=== PATIENT | male | born 1960 | race Caucasian/White ===

== ENCOUNTER 2025-03-25 14:31 | Outpatient (AMB) | payer MEDICARE, SELFPAY ==
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
[2025-03-25 15:47] VITALS: BP 140/80; PULSE 67; RESP 14; TEMP 36.6; O2SAT 97; BMI 43.9
== END 2025-03-25 16:41 | disposition home or self-care (01) ==
PROVIDERS: PCP Family Medicine; Visit Provider Family Medicine
DX: E11.9 Type 2 diabetes mellitus without complications (principal)

== ENCOUNTER → 2025-03-25 14:31 | Outpatient (BNVA) | payer SELFPAY | PROVIDERS: PCP Family Medicine; Visit Provider Family Medicine | DX: I10 Essential (primary) hypertension (principal); R41.89 Other symptoms and signs involving cognitive functions and awareness; H91.90 Unspecified hearing loss, unspecified ear; G47.9 Sleep disorder, unspecified; E78.5 Hyperlipidemia, unspecified; E11.9 Type 2 diabetes mellitus without complications; F41.8 Other specified anxiety disorders; R51.9 Headache, unspecified; G47.30 Sleep apnea, unspecified; S06.0XAA Concussion with loss of consciousness status unknown, initial encounter; V89.2XXA Person injured in unspecified motor-vehicle accident, traffic, initial encounter; Y93.9 Activity, unspecified; Y92.9 Unspecified place or not applicable; Y99.9 Unspecified external cause status; Z79.01 Long term (current) use of anticoagulants; Z86.718 Personal history of other venous thrombosis and embolism | CPT/HCPCS: 83036; 96127; 99212 ==

== ENCOUNTER 2025-04-01 12:11 | Outpatient (REF) | payer MEDICARE, SELFPAY ==
[2025-04-01 14:55] LABS: Hematocrit 39.3 % (42.0-52.0); Hemoglobin 12.9 g/dl (14.0-18.0); Mean Corpuscular HGB Conc 32.8 g/dl (31.0-36.0); Mean Corpuscular Hemoglobin 27.9 pg (27.0-33.0); Mean Corpuscular Volume 85.1 fL (80.0-98.0); NRBC Abs Auto 0.000 X10*3/uL (0.0-0.012); NRBC Pct Auto 0.0 /100WBC (0.0-0.2); Platelet Count 321 X10*3/uL (160-400); Red Blood Count 4.62 X10*6/uL (4.60-5.80); White Blood Count 9.3 X10*3/uL (4.8-10.8)
[2025-04-01 15:35] LABS: INTERNATIONAL NORM RATIO 1.8 (0.9-1.1); Prothrombin Time 20.3 SEC (10.9-12.4)
[2025-04-01 15:40] LABS: Alanine Aminotransferase 20 U/L (0-40); Albumin Level 4.0 g/dL (3.5-5.0); Alkaline Phosphatase 85 U/L (39-117); Anion Gap 14 (12-20); Aspartate Amino Transferase 28 U/L (5-37); Blood Urea Nitrogen 21 mg/dL (9-16); Calcium 9.2 mg/dL (8.4-10.2); Carbon Dioxide 20 mmol/L (22-29); Chloride 108 mmol/L (96-108); Cholesterol 115 mg/dL (<200); Estimated Glomerular Filt Rate > 60; HDL Cholesterol 34 mg/dL (>40); Potassium 4.5 mmol/L (3.3-5.1); Sodium 137 mmol/L (135-145); Total Protein 6.8 g/dL (6.5-8.0); Triglycerides 172 mg/dL (<150)
== END 2025-04-01 12:12 | disposition home or self-care (01) ==
LOC: HO.WFDLDS 12:11
PROVIDERS: Visit Provider Physician Assistant Medical
DX: Z13.9 Encounter for screening, unspecified (principal); E78.5 Hyperlipidemia, unspecified; I10 Essential (primary) hypertension; Z86.718 Personal history of other venous thrombosis and embolism; Z79.01 Long term (current) use of anticoagulants
CPT/HCPCS: 36415; 80053; 80061; 85027; 85610

== ENCOUNTER 2025-04-05 09:24 | Outpatient (REF) | payer MEDICARE, SELFPAY ==
[2025-04-05 11:50] LABS: INTERNATIONAL NORM RATIO 2.4 (0.9-1.1); Prothrombin Time 27.3 SEC (10.9-12.4)
== END 2025-04-05 09:25 | disposition home or self-care (01) ==
LOC: HO.WFDLDS 09:24
PROVIDERS: Visit Provider Physician Assistant Medical
DX: Z79.01 Long term (current) use of anticoagulants (principal)
CPT/HCPCS: 36415; 85610

== ENCOUNTER 2025-06-17 11:50 | Outpatient (AMB) | payer MEDICARE, SELFPAY ==
[2025-06-17 12:45] VITALS: BP 134/82; PULSE 63; O2SAT 98; BMI 45.1
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
--- OUTSIDE RECORDS SUMMARY | 2025-06-17 14:09 | XMS_ITS | Clinical Summary ---
Author Organization [facility] Address [address] [place] [address] Phone Care Team Providers Care Director Of Leadership Development Name Role Phone Tanya Baekr MD Primary Care Provider [phone] Allergies Active Allergy Reactions Criticality Noted Date Comments Iodinated Contrast Media 11/04/2024 Medications atorvastatin (LIPITOR) 40 MG tablet Take 1 tablet by mouth every morning. 09/06/2024 Active escitalopram oxalate (LEXAPRO) 20 MG tablet Take 1 tablet by mouth every morning. 10/23/2024 Active lisinopril (PRINIVIL,ZESTRIL ) 30 MG tablet Take 1 tablet by mouth every morning. 10/16/2024 Active metFORMIN (GLUCOPHAGE) 500 MG tablet 1,000 mg daily with breakfast. 09/24/2024 Active JANTOVEN 2 mg tablet Take 2 mg by mouth. 11/03/2024 Active MOUNJARO 10 mg/0.5 mL PnIj subcutaneous pen Inject 10 mg under the skin once a week. 11/30/2024 Active ONETOUCH VERIO Strp strips USE 1 STRIP TO TEST BLOOS SUGAR ONCE DAILY 12/03/2024 Active ONETOUCH VERIO REFLECT METER Misc meter USE TO TEST BLOOD SUGARS DAILY 12/03/2024 Active ONETOUCH DELICA PLUS LANCET 33 gauge Misc USE 1 LANCET DAILY TO TEST BLOOD SUGARS ONCE DAILY 12/03/2024 Active Active Problems No known active problems Encounters Date Type Department Care Team Description 05/10/2025 10:00 AM EDT Follow-Up [facility] [address] [place] [id number] Silviano Mitchell NP Concussion with no loss of consciousness, sequela (Primary Dx); Memory loss; Emotional dysregulation; Attention and concentration deficit; Dizziness and giddiness; Bilateral hearing loss, unspecified hearing loss type from Last 3 Months Social History Tobacco Use Types Packs/Day Years Used Date Smoking Tobacco: Never Smokeless Tobacco: Never Tobacco Cessation:Counseling Given: Not Answered Alcohol Use Standard Drinks/Week Comments Not Currently 0 (1 standard drink = 0.6 oz pur e alcohol) Education Answer Date Recorded Are you interested in more education? Not on azeem e 05/22/2023 Are you concerned about learning? Not on file 05/22/2023 No 05/22/2023 No 05/22/2023 Digital Access Answer Date Recorded No 05/22/2023 No 05/22/2023 Reliable internet access at home? Not on file 05/22/2023 Device with a working camera? Not on file Sex and Gender Information Value Date Recorded Sex Assigned at Not on file Legal Sex Male 6:49 PM EST Gender Identity Not on file Sexual Orientation Not on file Plan of Treatment Upcoming Encounters Date Type Department Care Team (Late st Contact Info) Description 07/02/2025 3:00 PM EDT Office Visit [facility] [address] [place] [phone] Kojo Lieberman, PhD [address] [place] [phone] Health Maintenance Due Date Last Done Comments Adult Td,Tdap Booster 1960 CREATININE LEVEL 1960 LIPID PANEL 1960 POTASSIUM LEVEL 1960 DEPRESSION SCREENING 1972 HEPATITIS C SCREENING 1978 HIV ONE-TIME SCREENING (18-6 5 YEARS) 1978 COLOGUARD 2005 COLONOSCOPY 2005 COLORECTAL CANCER SCREENING 2005 FIT TEST 2005 FOBT 2005 SIGMOIDOSCOPY 2005 VIRTUAL COLONOSCOPY 2005 PNEUMOCOCCAL VACCINES (50+ y ears) (1 of 1 - PCV) 2010 ZOSTER VACCINES (1 of 2) 2010 INFLUENZA VACCINE (#1) 2025 COVID-19 VACCINE (2023-2 5 season) 2025 RSV VACCINE (1 - 1-dose 75+ series) 2035 SMOKING STATUS SCREENING (On ce After 26 Yrs) Completed 03/08/2025 HEPATITIS A VACCINES Aged Out No long er eligible based on patient's age to complete this topic HIB VACCINES Aged Out No longer eligi ble based on patient's age to complete this topic MENINGOCOCCAL VACCINES (ACWY) Aged Out No longer eligible based on patient's age to complete this topic MENINGOCOCCAL VACCINES (B) Aged Out N o longer eligible based on patient's age to complete this topic Medical Devices Not on file Insurance [facility] MEDICARE REPLACEMENT [place] MED[place] BLUE REPLACEMENT [facility] MEDICARE REPLACEMENT [address] MEDICARE PPO BLUE REPLACEMENT [facility] MEDICARE REPLACEMENT [address] MEDICARE PPO BLUE REPLACEMENT [facility] MEDICARE REPLACEMENT Member Subscriber Plan / Payer (Ef fective 2022-Present) Name:Manas Naqvi Relation to Subscriber:Self Name:Manas Naqvi Payer ID:[id number] (NAIC) Type:Medicare Address: [place] [id number] MEDICARE PPO BLUE REPLACEMENT [facility] MEDICARE REPLACEMENT Member Subscriber Plan / Payer (Ef fective 2022-Present) Name:Manas Naqvi Relation to Subscriber:Self Name:Manas Naqvi Payer ID:[id number] (NAIC) Type:Medicare Address: [place] [id number] MEDICARE PPO BLUE REPLACEMENT [facility] MEDICARE REPLACEMENT [facility] MEDICARE PPO BLUE REPLACEMENT [facility] MEDICARE PPO [facility] Care Teams Director Of Leadership Development Relationship Specialty Start Date End Date Tanya Baker MD [address] [place] [id number] PCP - General Family Medicine 05/22/23 Additional Source Comments The information contained in this document represents components of the legal health record. It is not the complete legal health record.[facility]
== END 2025-06-17 13:44 | disposition home or self-care (01) ==
LOC: HO.HSMS 11:50
PROVIDERS: PCP Family Medicine; Visit Provider Physician Assistant Medical
DX: G47.19 Other hypersomnia (principal); V89.2XXA Person injured in unspecified motor-vehicle accident, traffic, initial encounter; G44.221 Chronic tension-type headache, intractable; R53.82 Chronic fatigue, unspecified
CPT/HCPCS: 99204

== ENCOUNTER → 2025-06-17 11:50 | Outpatient (BNVA) | payer MEDICARE, SELFPAY | PROVIDERS: PCP Family Medicine; Visit Provider Physician Assistant Medical | DX: G47.19 Other hypersomnia (principal); G44.221 Chronic tension-type headache, intractable; R53.82 Chronic fatigue, unspecified; V89.2XXD Person injured in unspecified motor-vehicle accident, traffic, subsequent encounter | CPT/HCPCS: 99202 ==

== ENCOUNTER 2025-07-07 11:15 | Outpatient (REF) | payer MEDICARE, SELFPAY ==
[2025-07-07 15:43] LABS: Ferritin 96 ng/mL (20-250)
[2025-07-07 15:52] LABS: Folate 13.9 ng/mL (> or = 4.0); Vitamin B12 440 pg/mL (200-900)
== END 2025-07-07 11:16 | disposition home or self-care (01) ==
LOC: HO.WFDLDS 11:15
PROVIDERS: PCP Family Medicine; Referring Provider Physician Assistant Medical; Visit Provider Family Medicine
DX: Z00.00 Encounter for general adult medical examination without abnormal findings (principal); Z12.5 Encounter for screening for malignant neoplasm of prostate; Z12.11 Encounter for screening for malignant neoplasm of colon; I10 Essential (primary) hypertension; E78.5 Hyperlipidemia, unspecified; R53.83 Other fatigue; G47.9 Sleep disorder, unspecified; R51.9 Headache, unspecified; E11.9 Type 2 diabetes mellitus without complications; H91.90 Unspecified hearing loss, unspecified ear; K08.89 Other specified disorders of teeth and supporting structures; V89.2XXA Person injured in unspecified motor-vehicle accident, traffic, initial encounter; Z86.718 Personal history of other venous thrombosis and embolism; Z79.01 Long term (current) use of anticoagulants; Z79.84 Long term (current) use of oral hypoglycemic drugs; Z79.899 Other long term (current) drug therapy
CPT/HCPCS: 36415; 82306; 82607; 82728; 82746; 83921; 84153; 84207; 84425; 84443; 96127; 99212; 99397

== ENCOUNTER 2025-07-07 11:15 | Outpatient (AMB) | payer MEDICARE, SELFPAY ==
--- NOTE | 2025-07-07 11:31 | MHC.PC.OV ---
Vital Signs 07/07/25 11:39 Height 5 ft 9 in Weight 299 lb 2 oz BMI 44.2 BP 144/71 H Blood Pressure Location Rt brachial Position Sitting Respiration 16 Pulse 64 Pulse Source Pulse Oximeter Temp 98.0 F Temp Source Oral Pulse Oximetry (%) 100 Oxygen Delivery Method Room Air Intake Visit Reasons: CPE with f/u labs and health maint. Intake Note: patient here for CPE and follow up on labs and health maint. Edge Worker Required: No Allergies Gadolinium-Containing Contrast Medi Allergy (Severe, Verified 07/07/25 11:36) Nausea and Vomiting Iodinated Contrast Media (Contrast Dye) Allergy (Severe, Verified 07/07/25 11:36) Nausea and Vomiting Medication List - Last Reconciled 07/07/25 by David Mulligan MD ashwagandha extract mg PO atorvastatin 40 mg PO DAILY 90 days biotin 2 mg PO DAILY blood sugar diagnostic ([place] Verio test strips) As directed blood-glucose meter ([place] Verio Reflect Meter) As directed cholecalciferol (vitamin D3) 125 mcg PO DAILY escitalopram oxalate 20 mg PO DAILY folic acid 0.4 mg PO DAILY lancets ([place] Advanced MaterialsTouch Delica Plus Lancet) As directed lisinopril 30 mg PO DAILY 90 days metformin 1,000 mg (2 x 500 mg) PO QPM 90 days niacin 500 mg PO DAILY tirzepatide (Mounjaro) 12.5 mg subcut QWEEK adzpzqzw-aorcmg-msypp pepper 125 mg-6 mg- 50 mcg tabs PO warfarin (Jantoven) 6 mg (3 x 2 mg) PO DAILY 90 days Tobacco use date assessed: 07/07/25 Fall risk assessment: No Falls in past year Last assessed Fall Risk: 07/07/25 Dental Screening Dental Screen Date: 07/07/25 Did you have a dental visit in the last 12 months?: Yes Did you have a dental problem in the last 6 months where you did not have access to dental care?: No Was dental information given to patient?: Patient has dentist HPI CPE with f/u labs and health maint. HPI Details 65 y/o male presents for a CPE with f/u labs and health maintenance. Labs drawn 04/01/25. Reviewed labs with pt. Triglcyerides 172.TC 115. LDL 47. HDL low at 34. He is on artovastatin 40mg daily. BP today 144/71, 64p. He is on lisinopril 30mg daily. Pt notes tooth pain today. A1c today 07/07/25 6.9%. He is on Mounjaro 12.5mg weekly, metformin 1000mg. Recent hearing test shows bilateral hearing loss. He has a sleep study scheduled in July. [facility] Medical History Hernia, umbilical Surgical History History of total hip replacement H/O hernia repair S/P closed reduction and percutaneous pinning (CRPP) of supracondylar fracture of right humerus Social History Housing: House Patient Tobacco Use Status: Former Tobacco user e-Cigarette/Vaping Use: Never Used Second Hand Smoke Exposure: No service: No Current occupational status: disabled Current occupational exposures/hazards: No Cognitive needs: No Hearing needs: No Vision needs: Yes Questionnaire PHQ-9 Over the last 2 weeks, how often have you been bothered by any of the following problems? 1. Little interest or pleasure in doing things: more than half the days 2. Feeling down, depressed, or hopeless: several days 3. Trouble falling or staying asleep, or sleeping too much: several days 4. Feeling tired or having little energy: several days 5. Poor appetite or overeating: not at all 6. Feeling bad about yourself - or that you are a failure or have let yourself or your family down: not at all 7. Trouble concentrating on things, such as reading the newspaper or watching television: more than half the days 8. Moving or speaking so slowly that other people could have noticed. Or the opposite - being so fidgety or restless that you have been moving around a lot more than usual: more than half the days 9. Thoughts that you would be better off or of hurting yourself in some way: not at all Total score: 9 Depression Screening Interpretation: Positive Depression Screening Done: Yes 26980 - PHQ-9 Billing: Yes Source: Developed by Drs. Jadon Paez, Keri Faulkner, Jose Cruz Otero and colleagues, with an educational zhanna from [employer]. Thrive Questionnaire Date Thrive assessed: 07/07/25 I am a: Patient What is your living situation today?: I have a steady place to live Within the past 12 months, did the food you bought not last and you didn't have the money to get more?: Never true Within the past 12 months, did you worry whether your food would run out before you got money to buy more?: Never true Do you have trouble paying for medicines?: No Do you have trouble getting transportation to medical appointments?: No Do you have trouble paying your heating and electricity bill?: No Do you have trouble taking care of your child, family member or friend?: No Do you have trouble with day-to-day activities such as bathing, preparing meals, shopping, managing finances, etc.?: No Are you currently unemployed and looking for a job?: No Are you interested in more education?: No Please select the resources that you would like help with: None Currently or been in a relationship where the following occur: No concerns reported THRIVE Score: 0 AUDIT C Alcohol Use Questionnaire (AUDIT-C) 1. How often do you have a drink containing alcohol?: Never 3. How often do you have six or more drinks on one occasion?: Never Total Score: 0 Score Reviewed/Action Taken: Yes NAKITA-7 AMB Questionnaire NAKITA-7 Date NAKITA - 7 assessed: 07/07/25 Feeling nervous, anxious, or on edge: 2 = More than half the days Not being able to stop or control worryin = More than half the days Worrying too much about different things: 2 = More than half the days Trouble relaxin = More than half the days Being so restless that it is hard to sit still: 2 = More than half the days Becoming easily annoyed or irritable: 2 = More than half the days Feeling afraid as if something awful might happen: 2 = More than half the days Total NAKITA-7 score (0-4 normal; 5-9 mild; 10-14 moderate; 15-21 severe): 14 Source: Developed by Drs. Jadon Paez, Keri Faulkner, Jose Cruz Otero and colleagues, with an educational zhanna from [employer]. NAKITA-7 Assessment Billing NAKITA-7 Assessment Tool: NAKITA-7 Assessment 95307 Review of Systems Const Denies chills, Denies fatigue, Denies fever(s), Denies headache(s) and Denies weakness Eyes Denies change in vision ENT Denies dizziness, Denies headache(s), Denies hearing loss, Denies nasal congestion, Denies sinus pain, Denies sinus pressure and Denies sore throat Card Denies chest pain, Denies lightheadedness, Denies dyspnea and Denies other (palpitations) Resp Denies cough, Denies dyspnea and Denies wheezing GI Denies abdominal pain, Denies melena, Denies hematochezia, Denies change in bowel habits, Denies dyspepsia and Denies nausea Denies hematuria and Denies dysuria Musc Denies abnormal gait, Denies myalgias, Denies arthralgias, Denies numbness and Denies tingling Skin/Breast Denies rash, Denies unusual bruising and Denies wounds Neuro Denies abnormal gait, Denies dizziness, Denies headache(s), Denies memory loss, Denies numbness, Denies Sensory deficit (Neuro), Denies tingling and Denies weakness Psych Denies anxiety, Denies depression and Denies memory loss Endo Denies cold intolerance, Denies fatigue, Denies heat intolerance, Denies polydipsia and Denies polyuria Max/Lymph Denies easy bleeding and Denies easy bruising Aller/Immun Denies wheezing Physical exam (Primary Care) Vital Signs: Last Vital Signs Temp 98.0 F 07/07/25 11:39 Pulse 64 07/07/25 11:39 Resp 16 07/07/25 11:39 BP 144/71 H 07/07/25 11:39 Pulse Ox 100 07/07/25 11:39 Oxygen Delivery Method Room Air 07/07/25 11:39 BMI result Body Mass Index 44.2 Tobacco/Smoking Status: Tobacco use Status Tobacco use date assessed 07/07/25 07/07/25 11:43 Patient Tobacco Use Status Former Tobacco user 07/07/25 11:34 e-Cigarette/Vaping Use Never Used 07/07/25 11:34 PHQ-9: PHQ-9 Score PHQ-9: Total score 9 07/07/25 12:41 Depression Screening Interpretation: Positive Thrive Assessment: Date of Thrive Assessment Date Thrive assessed 07/07/25 07/07/25 11:43 Currently or been in a relationship where the following occur: No concerns reported Const General: no acute distress, well developed, alert and awake Nutritional Appearance: well nourished Orientation/consciousness: patient oriented x3 [facility] Head: Yes normocephalic and Yes atraumatic Ears: hearing grossly normal bilaterally and TM's normal bilaterally General nose exam: Normal external nose present and Normal nares present Mouth: Normal oral and palatal mucosa present and moist mucous membranes Teeth and gingiva: dentition normal Throat: Yes posterior oropharynx normal Eyes General: appearance normal, both eyes and all related structures Pupils: Equal, round and reactive pupils present and Pupil accommodation reflex normal EOM: EOMs intact bilaterally Neck Neck: Yes normal visual inspection, Yes no lymphadenopathy and Yes trachea midline Thyroid: Thyroid normal Carotids: no bruits Lymphatic: no lymphadenopathy noted Chest Chest palpation & inspection: normal inspection of the chest Resp Effort & Inspection: normal respiratory effort Auscultation: clear to auscultation bilaterally Cardio Rate: regular rate Rhythm: regular rhythm Heart sounds: S1 normal heart sound present, S2 normal heart sound present, no gallops, no murmurs and no rubs Bruits: no abdominal aortic bruits and no carotid bruits GI Palpation (GI): No Abdominal aortic bruit present, Soft to palpation, nontender, No hepatosplenomegaly present and No Rebound tenderness present Auscultation: normal bowel sounds General: Yes no CVA tenderness Back/Spine/Pelvis Back: no CVA tenderness Cervical Spine: cervical ROM normal and No Cervical spine tenderness Thoracic/Lumbar Spine: thoraco-lumbar ROM normal, No pain with thoraco-lumbar ROM, No thoracic spinal tenderness and No lumbar spinal tenderness Skin Lesions: no lesions Rashes: no rashes Trauma: no lacerations or abrasions Wounds: no wounds Nails: normal Neuro General: patient oriented x3 Cranial nerves: Yes Equal, round and reactive pupils present Cognition (Neuro): normal cognition Gait exam (Neuro): Normal gait present Motor exam (neuro): 5/5 motor strength present throughout Sensory Exam: No Sensory deficit (Neuro) Deep tendon reflexes (DTR's): Right patellar reflex intensity grade: 2+ and Left patellar reflex intensity grade: 2+ Extrem General: Yes normal to inspection and No edema Psych Appearance: grossly normal Affect: normal affect Attitude: cooperative Thought process: Normal thought process present Coding Level of Care Code Est Pt Level 3 (79999) Est Pt Prev Care >65y(25749) Diagnoses Adult general medical exam Z00.00 Hypertension I10 Hyperlipidemia E78.5 Screening for colon cancer Z12.11 Screening for prostate cancer Z12.5 Diabetes E11.9 Hearing loss H91.90 Tooth pain K08.89 History of DVT (deep vein thrombosis) Z86.718 Additional Codes NAKITA-7 Assessment Billing - NAKITA-7 Assessment Tool: NAKITA-7 Assessment 62349 ([id number]) PHQ-9 - 67419 - PHQ-9 Billing: Yes ([id number]) Assessment & Plan Assessment & Plan (1) Adult general medical exam: Code(s): Z00.00 - Encounter for general adult medical examination without abnormal findings Category: Medical Plan: 65-year-old male presents for complete physical exam (2) Hypertension: Code(s): I10 - Essential (primary) hypertension Category: Medical Plan: Blood pressure is a little elevated today but patient has complaint tooth pain. Goal is less than 140/90 Medication (3) Hyperlipidemia: Code(s): E78.5 - Hyperlipidemia, unspecified Category: Medical Plan: HDL cholesterol is too low. Triglycerides are a little bit high Encouraged exercise His other lipid levels are okay on atorvastatin 40 mg daily (4) Screening for colon cancer: Code(s): Z12.11 - Encounter for screening for malignant neoplasm of colon Category: Medical Plan: Patient says he had a colonoscopy about 5 years ago at [facility] and was told follow-up in about 5 years Referred him back to [facility] gastroenterology (5) Screening for prostate cancer: Code(s): Z12.5 - Encounter for screening for malignant neoplasm of prostate Category: Medical Plan: PSA ordered (6) Diabetes: Code(s): E11.9 - Type 2 diabetes mellitus without complications Category: Medical Plan: A1c 6.9%. Good control. Goal is less than 7.0% Continue current medications (7) Hearing loss: Code(s): H91.90 - Unspecified hearing loss, unspecified ear Category: Medical Plan: Moderately severe sensorineural hearing loss bilaterally in mid and high frequency ranges Would benefit from amplification and he says that hearing center is helping with this (8) Tooth pain: Code(s): K08.89 - Other specified disorders of teeth and supporting structures Category: Medical Plan: Left upper more was apparently extracted few days ago. Still has swelling and severe pain with mild pus and possible tooth fragment He was given clindamycin by his dentist He will continue clindamycin and I advised warm saltwater gargles Will also give him some pain control with Percocet 5/325mg b.i.d. x3 days He can use Tylenol sparingly - watch max dose as Percocet contains acetaminophen as well. Use very short courses of naproxen - he is on warfarin - prolonged use as this may increase GI bleeding Was given clindamycin by his dentist. He is on warfarin and INR may rise Also, patient has not been following with the Coumadin Clinic-see below (9) History of DVT (deep vein thrombosis): Code(s): Z86.718 - Personal history of other venous thrombosis and embolism Category: Medical Plan Patient is chronically anticoagulated with warfarin Has not been following with the Coumadin Clinic Made new referral I have ordered an INR in can follow-up on this this afternoon while he is waiting management by [facility] anticoagulation clinic. 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 1 tab PO BID PRN 6 tabs 0RF pain 3 days
[2025-07-07 11:39] VITALS: BP 144/71; PULSE 64; RESP 16; TEMP 36.7; O2SAT 100; BMI 44.2
== END 2025-07-07 13:09 | disposition home or self-care (01) ==
LOC: HO.HMCFM 11:16
PROVIDERS: PCP Family Medicine; Visit Provider Family Medicine
DX: Z00.00 Encounter for general adult medical examination without abnormal findings (principal); E11.69 Type 2 diabetes mellitus with other specified complication; I10 Essential (primary) hypertension; H91.93 Unspecified hearing loss, bilateral; E78.5 Hyperlipidemia, unspecified; Z12.11 Encounter for screening for malignant neoplasm of colon; Z12.5 Encounter for screening for malignant neoplasm of prostate; K08.89 Other specified disorders of teeth and supporting structures; Z86.718 Personal history of other venous thrombosis and embolism

== ENCOUNTER 2025-08-16 14:20 | Outpatient (REF) | payer MEDICARE, SELFPAY ==
[2025-08-16 18:07] LABS: INTERNATIONAL NORM RATIO 3.3 (0.9-1.1); Prothrombin Time 38.6 SEC (11.2-13.5)
[2025-08-17 09:08] LABS: Lyme Abs Screen <0.90 index
== END 2025-08-16 14:21 | disposition home or self-care (01) ==
LOC: HO.WFDLDS 14:20
PROVIDERS: Visit Provider Family Medicine
DX: Z01.84 Encounter for antibody response examination (principal); Z51.81 Encounter for therapeutic drug level monitoring; Z86.718 Personal history of other venous thrombosis and embolism
CPT/HCPCS: 36415; 85610; 86617; 86618